=== PATIENT | female | born 1995 | race Caucasian/White ===

== ENCOUNTER 2019-10-26 17:46 | Emergency (ER) | payer SELFPAY ==
[~2019-10-26] VITALS: Ht 172.7 cm; Wt 83.9 kg
[2019-10-26 18:33] VITALS: BP 133/87
--- NOTE | 2019-10-26 18:36 | NUR ---
PT PLACED IN LOBBY, AMBULATED.
--- NOTE | 2019-10-26 21:25 | NUR ---
PT AMBULATED TO BED #2
--- NOTE | 2019-10-26 21:25 | NUR ---
C/ O LEFT EYE PAIN X 3 DAYS. PT STATES SHE SEES PIXEL APPEARANCE ON THE LEFT EYE. DENIES ANY TRUAMA OR INJURY TO EYE OR HEAD. 3MMPERRLA BRISK BILAT. STEADY GAIT. NO BLURRY VISION. NO DIZZINESS, NO PAIN. A & 0X4. NKA. PMH: MIGRAINE, RESENDIZ PALSY.
[2019-10-26 22:19] VITALS: BP 126/74
--- NOTE | 2019-10-26 22:19 | NUR ---
DR. BLAKE DISCHARGE PT AND GAVE DISCHARGE TEACHING.
== END 2019-10-26 22:19 | disposition home or self-care (01) ==
LOC: MED 17:46
DX: H43.392 Other vitreous opacities, left eye (principal); G43.909 Migraine, unspecified, not intractable, without status migrainosus
CPT/HCPCS: 99281